=== PATIENT | female | born 1990 | race Caucasian/White ===

== ENCOUNTER 2023-10-02 19:36 | Emergency (ER) | payer MEDICAID ==
[~2023-10-02] VITALS: Ht 170.2 cm; Wt 58.1 kg
[2023-10-02 19:51] VITALS: BP_SYST 125; PULSE 78; RESP 14; TEMP 98.2; O2SAT 98
[2023-10-02] MEDS ORDERED: NALOXONE HCL 2 MG/2 ML SYR IVP ONE (20:00)
[2023-10-02 21:37] LABS: BASOPHILS % (AUTO) 0.2 % (0.0-2.0); EOSINOPHILS # (AUTO) 0.1 K/uL (0.0-0.4); EOSINOPHILS % (AUTO) 1.1 % (0.0-4.0); HEMATOCRIT 34.7 % (36-48); LYMPHOCYTES # (AUTO) 1.6 K/uL (1.0-5.5); LYMPHOCYTES % (AUTO) 19.6 % (20.5-51.5); MEAN CORPUSCULAR HEMOGLOBIN 30 pg (27-31); MEAN CORPUSCULAR HGB CONC 35 % (32-36); MEAN CORPUSCULAR VOLUME 86 fL (79.0-98.0); MONOCYTES # (AUTO) 0.8 K/uL (0.0-1.0); MONOCYTES % (AUTO) 9.8 % (1.7-9.3); NEUTROPHILS # (AUTO) 5.6 K/uL (1.8-7.7); NEUTROPHILS % (AUTO) 69.3 % (40.0-70.0); PLATELET COUNT (AUTO) 314 K/uL (130-430); RED BLOOD CELL COUNT(AUTO) 4.04 MIL/uL (4.2-6.2); RED CELL DISTRIBUTION WIDTH 12.5 % (9.0-15.0); WHITE BLOOD COUNT (AUTO) 8.1 K/uL (4.8-10.8)
[2023-10-02 21:55] LABS: ACETONE, SERUM NEGATIVE (NEGATIVE)
[2023-10-02 22:01] LABS: ALANINE AMINOTRANSFERASE 214 U/L (12-78); ALBUMIN 3.4 g/dL (3.4-4.8); ANION GAP 3 (5-15); ASPARTATE AMINOTRANSFERASE 111 U/L (10-37); CALCIUM 8.4 mg/dL (8.4-11.0); CARBON DIOXIDE 33 mmol/L (23-29); CHLORIDE 102 mmol/L (98-107); CREATININE 0.86 mg/dL (0.55-1.30); GFR AFRICAN AMERICAN 97 mL/min (>90); GFR NON AFRICAN-AMERICAN 80 mL/min (>90); GLUCOSE 91 mg/dL (74-106); POTASSIUM 4.1 mmol/L (3.5-5.1); SODIUM SERUM 138 mmol/L (136-145); TOTAL BILIRUBIN 0.5 mg/dL (0.0-1.0); TOTAL PROTEIN, SERUM 6.8 g/dL (6.4-8.3); UREA NITROGEN, BLOOD 16 mg/dL (8-21)
[2023-10-02 22:13] LABS: PROTHROMBIN TIME 10.6 SECS (9.5-12.5)
[2023-10-02 22:29] LABS: BILIRUBIN,DIRECT 0.2 mg/dL (0.0-0.3); CREATINE KINASE, TOTAL 165 U/L (26-192); LIPASE 13 U/L (16-77); SALICYLATE 1 mg/dL (3-30)
[2023-10-02 22:32] LABS: ACETAMINOPHEN < 1 ug/mL (1-30); ALCOHOL, BLOOD < 3 mg/dL (<10)
[2023-10-02 23:17] LABS: BILIRUBIN,URINE NEGATIVE (NEGATIVE); CLARITY/URINE CLEAR (CLEAR); COLOR,URINE YELLOW (YELLOW); GLUCOSE,URINE NEGATIVE (NEGATIVE); KETONES,URINE NEGATIVE (NEGATIVE); LEUKOCYTE ESTERASE ,URINE 2+ (NEGATIVE); NITRITE, URINE POSITIVE (NEGATIVE); PH,URINE 6.5 (5.0-8.0); PROTEIN URINE TRACE (NEGATIVE); UROBILINOGEN,URINE 0.2 (0.2-1.0)
[2023-10-02 23:27] LABS: BLOOD, URINE TRACE (NEGATIVE)
[2023-10-02 23:31] LABS: BARBITURATE, URINE NEGATIVE (NEG <=200); BENZODIAZEPINE, URINE NEGATIVE (NEG <=150); CANNABINOID, URINE NEGATIVE (NEG <=50); COCAINE, URINE NEGATIVE (NEG <=150); METHAMPHETAMINES SCREEN,URINE POSITIVE (NEG <=500); OPIATE, URINE NEGATIVE (NEG <=100); PHENCYCLIDINE SCREEN,URINE NEGATIVE (NEG <=25); UR TRICYCLIC ANTIDEPRESSANTS NEGATIVE (NEG <=300); URINE AMPHETAMINE POSITIVE (NEG <=500); URINE METHADONE NEGATIVE (NEG <=200); URINE OXYCODONE SCREEN NEGATIVE (NEG <=100)
[2023-10-02 23:36] LABS: BACTERIA,URINE MODERATE /HPF (None Seen); WBC,URINE >100 /HPF (0-3)
[2023-10-03] MEDS ORDERED: cefTRIAXone 500 MG in LIDOCAINE 1%, 20 ML MDV 1 ML IM ONE (00:15)
[2023-10-03] MEDS ORDERED: CEPH-548 PO (00:29)
[2023-10-03] MEDS ORDERED: NALO4SPR NS (00:29)
[2023-10-03] MEDS ORDERED: POLY17PO4 PO (00:31)
[2023-10-03 00:40] VITALS: O2SAT 99
[2023-10-03 00:51] VITALS: BP_SYST 118; PULSE 81; RESP 22; TEMP 97
== END 2023-10-03 00:49 | disposition home or self-care (01) ==
LOC: SED 19:36
DX: T43.651A Poisoning by methamphetamines accidental (unintentional), initial encounter (principal); N39.0 Urinary tract infection, site not specified; K59.00 Constipation, unspecified; Z79.899 Other long term (current) drug therapy; Y92.89 Other specified places as the place of occurrence of the external cause
CPT/HCPCS: 99285; 70450; 71045; 80307; 80076; 80048; 81000; 81001; 82009; 82140; 82550; 83880; 83690; 85025; 85610; 85730; 87086; 84484; 36415; 93005; 76376; 74176; 81025; 82948; 83605; 82397; 96372; 81015; J2310; J0696; G0480; G0481; G0482